=== PATIENT | female | born 1975 | race African-American/Black ===

== ENCOUNTER 2021-07-21 18:50 | Emergency (ER) | payer BC | END 2021-07-21 19:27 | disposition home or self-care (01) | LOC: NAV ERS 18:50 | DX: S16.1XXA Strain of muscle, fascia and tendon at neck level, initial encounter (principal); R73.03 Prediabetes; E03.9 Hypothyroidism, unspecified; M06.9 Rheumatoid arthritis, unspecified; Z79.899 Other long term (current) drug therapy; X58.XXXA Exposure to other specified factors, initial encounter | CPT/HCPCS: 93005 ==